=== PATIENT | female | born 1990 | race Caucasian/White ===

== ENCOUNTER 2019-05-06 13:16 | Outpatient (CLI) | payer OTHER | END 2019-05-06 14:42 | disposition home or self-care (01) | LOC: NST 13:16 | DX: Z34.82 Encounter for supervision of other normal pregnancy, second trimester (principal) ==

== ENCOUNTER 2019-05-27 16:11 | Inpatient (IN) | payer OTHER ==
[~2019-05-27] VITALS: Ht 160 cm; Wt 83.0 kg
[2019-05-27] MEDS ORDERED: PRENATAL DHA200 MG PO (21:33)
[2019-05-27] MEDS ORDERED: ASA-EC81 MG PO (21:34)
== END 2019-05-29 14:48 | DRG 833 ==
LOC: LDR 16:11 → OB/GYN 16:11 → LDR 20:24 → OB/GYN 05-28 12:19
PROVIDERS: ADMIT Obstetrics & Gynecology Maternal & Fetal Medicine
PROC: 4A1HXCZ Monitoring of Products of Conception, Cardiac Rate, External Approach (ICD-10-PCS; principal; 2019-05-27)
PROC: BY4DZZZ Ultrasonography of Second Trimester, Multiple Gestation (ICD-10-PCS; 2019-05-28)
DX: O34.32 Maternal care for cervical incompetence, second trimester (principal); O30.032 Twin pregnancy, monochorionic/diamniotic, second trimester; Z34.02 Encounter for supervision of normal first pregnancy, second trimester

== ENCOUNTER 2019-06-01 13:24 | Outpatient (CLI) | payer OTHER ==
[~2019-06-01 13:24] MED LIST: ASA-EC81 MG PO; PRENATAL DHA200 MG PO
[2019-06-01] MEDS ORDERED: NIFE60TA3 PO (16:49)
== END 2019-06-01 14:42 | disposition home or self-care (01) ==
LOC: NST 13:24
DX: Z34.82 Encounter for supervision of other normal pregnancy, second trimester (principal)

== ENCOUNTER 2019-06-01 15:55 | Inpatient (IN) | payer OTHER ==
[~2019-06-01] VITALS: Ht 160 cm; Wt 83.0 kg
[2019-06-01] MEDS ORDERED: NIFE60TA3 PO (16:49)
== END 2019-06-26 19:30 | DRG 833 ==
LOC: OB/GYN 15:55 → LDR 15:55 → OB/GYN 06-02 07:37
PROVIDERS: ADMIT Obstetrics & Gynecology
PROC: 4A1HXCZ Monitoring of Products of Conception, Cardiac Rate, External Approach (ICD-10-PCS; principal; 2019-06-01)
PROC: BY4DZZZ Ultrasonography of Second Trimester, Multiple Gestation (ICD-10-PCS; 2019-06-11)
PROC: BY4GZZZ Ultrasonography of Third Trimester, Multiple Gestation (ICD-10-PCS; 2019-06-18)
PROC: BY4GZZZ Ultrasonography of Third Trimester, Multiple Gestation (ICD-10-PCS; 2019-06-26)
DX: O26.873 Cervical shortening, third trimester (principal); O30.033 Twin pregnancy, monochorionic/diamniotic, third trimester
CPT/HCPCS: 240

== ENCOUNTER 2019-06-30 11:00 | Outpatient (CLI) | payer OTHER ==
[~2019-06-30 11:00] MED LIST changes: +NIFE60TA3 PO
== END 2019-06-30 12:23 | disposition home or self-care (01) ==
LOC: NST 11:00
DX: Z34.83 Encounter for supervision of other normal pregnancy, third trimester (principal)

== ENCOUNTER 2019-07-08 10:43 | Outpatient (CLI) | payer OTHER | END 2019-07-08 11:21 | disposition home or self-care (01) | LOC: NST 10:43 | DX: Z34.83 Encounter for supervision of other normal pregnancy, third trimester (principal); O09.73 Supervision of high risk pregnancy due to social problems, third trimester; Z3A.30 30 weeks gestation of pregnancy ==

== ENCOUNTER 2019-07-15 12:44 | Outpatient (CLI) | payer OTHER | END 2019-07-15 13:59 | disposition home or self-care (01) | LOC: NST 12:44 | DX: Z34.83 Encounter for supervision of other normal pregnancy, third trimester (principal) ==

== ENCOUNTER 2019-07-29 13:12 | Outpatient (CLI) | payer OTHER | END 2019-07-29 14:58 | disposition home or self-care (01) | LOC: NST 13:12 | DX: Z34.83 Encounter for supervision of other normal pregnancy, third trimester (principal) ==

== ENCOUNTER 2019-08-05 11:34 | Outpatient (CLI) | payer OTHER ==
[2019-08-05] MEDS ORDERED: INTEGRA CAPSUL1 EACH PO (16:19)
[2019-08-05] MEDS ORDERED: TOPROL XL25 M1 PO (16:19)
== END 2019-08-05 13:27 | disposition home or self-care (01) ==
LOC: NST 11:34
DX: Z34.83 Encounter for supervision of other normal pregnancy, third trimester (principal)

== ENCOUNTER 2019-08-05 14:30 | Inpatient (IN) | payer OTHER ==
[~2019-08-05] VITALS: Ht 162.6 cm; Wt 2.3 kg
[2019-08-05] MEDS ORDERED: TOPROL XL25 M1 PO (16:19)
[2019-08-05] MEDS ORDERED: INTEGRA CAPSUL1 EACH PO (16:19)
== END 2019-08-23 11:26 | disposition home or self-care (01) | DRG 787 ==
LOC: O/R 14:30 → OB/GYN 08-19 06:58 → O/R 08-19 06:58 → OB/GYN 08-19 11:43
PROVIDERS: ADMIT Obstetrics & Gynecology Maternal & Fetal Medicine
PROC: 4A1HXCZ Monitoring of Products of Conception, Cardiac Rate, External Approach (ICD-10-PCS; 2019-08-19)
PROC: 10D00Z1 Extraction of Products of Conception, Low, Open Approach (ICD-10-PCS; principal; 2019-08-19 09:00)
PROC: 30233N1 Transfusion of Nonautologous Red Blood Cells into Peripheral Vein, Percutaneous Approach (ICD-10-PCS; 2019-08-22)
DX: O82 Encounter for cesarean delivery without indication (principal); D62 Acute posthemorrhagic anemia; O64.1XX0 Obstructed labor due to breech presentation, not applicable or unspecified; O30.043 Twin pregnancy, dichorionic/diamniotic, third trimester; Z3A.36 36 weeks gestation of pregnancy; Z37.2 Twins, both liveborn; O90.81 Anemia of the puerperium

== ENCOUNTER 2019-08-10 09:05 | Outpatient (CLI) | payer OTHER ==
[~2019-08-10 09:05] MED LIST changes: +INTEGRA CAPSUL1 EACH PO; +TOPROL XL25 M1 PO
== END 2019-08-10 10:16 | disposition home or self-care (01) ==
LOC: NST 09:05
DX: Z34.83 Encounter for supervision of other normal pregnancy, third trimester (principal)

== ENCOUNTER 2019-08-12 09:16 | Outpatient (CLI) | payer OTHER | END 2019-08-12 13:44 | disposition home or self-care (01) | LOC: NST 09:16 | DX: Z34.83 Encounter for supervision of other normal pregnancy, third trimester (principal) ==

== ENCOUNTER 2019-08-14 09:55 | Outpatient (CLI) | payer OTHER | END 2019-08-14 11:01 | disposition home or self-care (01) | LOC: NST 09:55 | DX: Z34.83 Encounter for supervision of other normal pregnancy, third trimester (principal) ==

== ENCOUNTER 2019-08-17 09:25 | Outpatient (CLI) | payer OTHER | END 2019-08-17 10:29 | disposition home or self-care (01) | LOC: NST 09:25 | DX: Z34.83 Encounter for supervision of other normal pregnancy, third trimester (principal) ==